=== PATIENT | male | born 1965 | race Caucasian/White ===

== ENCOUNTER 2017-03-21 19:31 | Emergency (ER) | payer OTHER | END 2017-03-21 22:54 | disposition home or self-care (01) | LOC: ER 19:31 | DX: R07.2 Precordial pain (principal); M25.512 Pain in left shoulder; N28.9 Disorder of kidney and ureter, unspecified; E11.65 Type 2 diabetes mellitus with hyperglycemia; I10 Essential (primary) hypertension; E78.5 Hyperlipidemia, unspecified; F17.210 Nicotine dependence, cigarettes, uncomplicated; Z79.899 Other long term (current) drug therapy; Z88.5 Allergy status to narcotic agent | CPT/HCPCS: 36415; 96374; 96375 ==